=== PATIENT | female | born 1995 | race Caucasian/White ===

== ENCOUNTER 2017-08-14 13:05 | Emergency (ER) | payer OTHER ==
[2017-08-14 13:16] VITALS: BP 122/66
[2017-08-14] MEDS ORDERED: Fluorescein Sodium TOPICAL* 1 MG TEST ONE (13:34)
[2017-08-14] MEDS ORDERED: BSS OPTH.SOL* BTL ONE (13:35)
[2017-08-14] MEDS ORDERED: Tetracaine 0.5% OPTH.SOL 4 ML* 1 DROP BTL ONE (13:35)
--- NOTE | 2017-08-14 13:58 | UC ---
Eye Complaint HPI - HPI Summary HPI Summary: RUBBED HER EYES LAST NIGHT AND CONTACT LENS SHIFTED. TRIED TO TAKE IT OUT BUT NOT SURE SHE GOT IT. THINKS IT MIGHT BE STUCK UNDER HER EYELID. HAS FB SENSATION AND EYE IRRITATION. NO VISUAL DISTURBANCE. NO DRAINAGE. NO FEVER. - History of Current Complaint Chief Complaint: UCEye Stated Complaint: EYE COMPLAINT Time Seen by Provider: 08/14/17 13:49 Hx Obtained From: Patient Hx Last Menstrual Period: jul 31 Onset/Duration: Sudden Onset, Lasting Hours, Still Present Timing: Constant Severity Initially: Moderate Severity Currently: Mild Pain Intensity: 0 Pain Scale Used: 0-10 Numeric Location of Injury: Conjunctiva Character: Foreign Body Sensation Aggravating Factor(s): Blinking Alleviating Factor(s): Nothing Associated Signs And Symptoms: Positive: Negative - Allergies/Home Medications Allergies/Adverse Reactions: Allergies Allergy/AdvReac Type Severity Reaction Status Date / Time Amoxicillin Allergy Hives Verified 08/14/17 13:09 PMH/Surg Hx/FS Hx/Imm Hx Previously Healthy: Yes - Surgical History Surgical History: None - Family History Known Family History: Negative: Hypertension - Social History Alcohol Use: Weekly Substance Use Type: None Smoking Status (MU): Never Smoked Tobacco Review of Systems Constitutional: Negative Eyes: Eye Redness, Other - FB SENSATION Respiratory: Negative Cardiovascular: Negative Gastrointestinal: Negative All Other Systems Reviewed And Are Negative: Yes Physical Exam Triage Information Reviewed: Yes Appearance: Well-Appearing, No Pain Distress, Well-Nourished Vital Signs: Initial Vital Signs Temp 97.9 F 08/14/17 13:10 Pulse 59 08/14/17 13:10 Resp 16 08/14/17 13:10 BP 122/66 08/14/17 13:10 Pulse Ox 100 08/14/17 13:10 Vital Signs Reviewed: Yes Eyes: Positive: Conjunctiva Inflamed - RIGHT EYE, Other: - NO FB IDENTIFIED. FLUORESCEIN UPTAKE 5 O'CLOCK POSITION AT EDGE OF IRIS. Negative: Discharge ENT: Positive: Hearing grossly normal Neck: Positive: Supple Respiratory: Positive: No respiratory distress, No accessory muscle use Cardiovascular: Positive: Pulses Normal Abdomen Description: Positive: Soft Musculoskeletal: Positive: No Edema Neurological: Positive: Alert Psychological: Positive: Age Appropriate Behavior Skin: Negative: rashes Eye Complaint Course/Dx - Differential Dx/Diagnosis Provider Diagnoses: RIGHT EYE CORNEAL ABRASION Discharge - Discharge Plan Condition: Stable Disposition: HOME Prescriptions: Ciprofloxacin 0.3% OPTH.LORAINE* [Cipro 0.3% Opth*] 1 drop RIGHT EYE Q4H #1 btl Patient Education Materials: Corneal Abrasion (ED) Referrals: Ariel Nava MD [Medical Doctor] - Additional Instructions: FOLLOW-UP WITH OPHTHALMOLOGY IF YOU ARE NOT IMPROVED IN 1-2 DAYS.
== END 2017-08-14 14:11 | disposition home or self-care (01) ==
LOC: UCEAST 13:05
DX: H18.821 Corneal disorder due to contact lens, right eye (principal)
CPT/HCPCS: 99212; A9270-GY; G0463